=== PATIENT | female | born 1995 | race Caucasian/White ===

== ENCOUNTER 2023-09-25 07:25 | Inpatient (IN) ==
[2023-09-25] MEDS ORDERED: LACTATED RINGER'S 1,000 ML IV PRN (07:46)
[2023-09-25 08:13] LABS: Hemoglobin 13.9 g/dl (12.0-16.0); Mean Corpuscular Hemoglobin 30.6 pg (25.0-34.0); Mean Corpuscular Hgb Conc 33.9 g/dL (32.0-36.0); Mean Corpuscular Volume 90.3 fL (80.0-100.0); Mean Platelet Volume 9.6 fL (9.4-12.4); Platelet Count 230 K/uL (130-400); RDW Coefficient of Variation 14.6 % (11.5-14.5); RDW Standard Deviation 48.1 fL (36.4-46.3); Red Blood Count 4.54 M/uL (4.20-5.40); White Blood Count 13.47 K/ul (4.8-10.8)
[2023-09-25] MEDS: OXYTOCIN 30 UNITS/NSS 30 UNITS/500 ML BAG IV PRN (13:16)
[2023-09-25] MEDS: LIDOCAINE 1% LOCAL 20 ML VIAL INFIL PRN (13:29)
[2023-09-25] MEDS ORDERED: HYDROCORTISONE ACETATE 25 MG SUPP PR PRN (13:45)
[2023-09-25] MEDS ORDERED: ACETAMINOPHEN 325 MG TAB PO PRN (13:45)
[2023-09-25] MEDS ORDERED: OXYTOCIN 30 UNITS/NSS 30 UNITS/500 ML BAG IV PRN (13:45)
[2023-09-25] MEDS ORDERED: bisacodyL 10 MG SUPP PR PRN (13:45)
--- NOTE | 2023-09-25 16:05 | Delivery Summary ---
Vaginal Delivery Summary Date of Service September 25, 2023 Vaginal Delivery Summary and 1st Degree LAC Progressed to 10 cm dilated, 100% effaced +2 station pushed over intact perineum without anesthesia and delivered a viable with weight and Apgars pending. Head of the delivered without difficulty and no nuchal cord noted. Body and shoulders quickly followed. was noted to be vigorous soon after delivery and 1 minute delayed cord clamping was initiated. Cord was then double clamped and cut and remained in maternal abdomen. Cord blood obtained. Attention is turned delivery the placenta was delivered intact three-vessel cord gentle cord traction. There is noted to be a first-degree perineal laceration and a right labial laceration both repaired with 3-0 Vicryl continuous running stitch. Needle sponge and instrument counts were correct at the completion of the case. Both mother and stable in the immediate post delivery period. No complications noted and estimated blood loss of 200 mL. [facility] Vaginal Delivery Charge Delivery Type Details: and 1st Degree LAC
[2023-09-25] MEDS: BENZOCAINE 20% SPRY 85 APPLN/85 GM CAN EXT PRN (18:32)
[2023-09-25] MEDS: DIPHTHER/TETAN/PERTUS Vaccine (Tdap, Adol/Adult) 0.5mL IM ONE (18:34)
[2023-09-25] MEDS: CETIRIZINE HCL 10 MG TABLET PO SCH (20:51)
[2023-09-25] MEDS: DOCUSATE SODIUM 100 MG CAP PO SCH (20:51)
[2023-09-25] MEDS: IBUPROFEN 600 MG TAB PO PRN (20:58)
--- NOTE | 2023-09-26 06:05 | Obstetrical Progress Note ---
Date of Service September 26, 2023 Assessment & Plan (1) Encounter for care after hospital delivery: Plan: 28 y/o post day 1 s/p Continue post care Feels well today. Encourage ambulation and Hgb stable, rubella immune Pain well controlled with ibuprofen Admission and Anticipated Discharge Date Admission Date: September 25, 2023 Supervising Physician Co-Signing Physician Notes Patient seen with resident and agree with the above findings and plan. Routine care Subjective 28 y/o post- day 1 s/p Ambulation: ambulating normally Voiding: no voiding problems Passing Gas:: Yes Diet Tolerance:: regular diet Lochia:: Small Feeding Type:: Current Pain Level: controlled Resting comfortably this AM in NAD. Denies SELLERS, CP, SOB, N/V/D, LE pain/swelling. Review of Systems Review of Systems: as per hpi Physical Exam Physical Exam: General: patient resting comfortably, NAD, non-toxic in appearance, AA&O x 4, answers questions appropriately. Skin: warm, dry, intact HEENT: NC/AT, anicteric sclera, conjunctiva without injection, moist mucus membranes. Heart: +S1/S2, regular, no m/r/g Lungs: equal air entry bilaterally, no rales/rhonchi/wheezes Abd: +BS, soft, NT/ND, uterine fundus firm at umbilicus Ext: warm, no clubbing/cyanosis or edema, Ian's neg. Neuro: nonfocal, patient AA&O x 4, speech intact, no facial droop, moving all e xtremities on command. Results & Data Vital Signs (Past 12 Hours) Vital Signs Temp Pulse Resp BP Pulse Ox O2 Del Method 09/26/23 04:15 36.6 C 94 H 18 105/70 98 Room Air 09/26/23 00:10 36.8 C 103 H 18 116/67 98 Room Air 09/25/23 20:00 37.1 C 140 H 22 126/80 96 Room Air Resident Activity Tracking Resident Involvement: Resident Care Provided Care Provided: OB Delivery
[2023-09-26 07:31] LABS: Hematocrit (blood only) 34.7 % (37.0-47.0); Hemoglobin 11.4 g/dl (12.0-16.0); Mean Corpuscular Hemoglobin 30.2 pg (25.0-34.0); Mean Corpuscular Hgb Conc 32.9 g/dL (32.0-36.0); Mean Corpuscular Volume 91.8 fL (80.0-100.0); Mean Platelet Volume 9.7 fL (9.4-12.4); Platelet Count 209 K/uL (130-400); RDW Coefficient of Variation 14.9 % (11.5-14.5); RDW Standard Deviation 50.4 fL (36.4-46.3); Red Blood Count 3.78 M/uL (4.20-5.40); White Blood Count 18.41 K/ul (4.8-10.8)
[2023-09-26] MEDS: PRENATAL VITAMIN 1 TAB PO SCH (08:10)
[2023-09-26] MEDS: bisacodyL 5 MG TABEC PO SCH (20:08)
--- NOTE | 2023-09-27 03:54 | Obstetrical Progress Note ---
Date of Service September 27, 2023 Assessment & Plan (1) Encounter for care after hospital delivery: Plan stable, ready for dc. instructions reviewed, f/u 6wk pp. rh neg, baby rh neg, ri, . Day #:: 2 Subjective Ambulation: ambulating normally Voiding: no voiding problems Diet Tolerance:: regular diet Lochia:: Small Feeding Type:: breast feeding no concerns Constitutional: + as per Subjective / HPI Physical Exam Constitutional WD/WN, vitals as above Respiratory normal respiratory effort, lungs clear to auscultation Cardiovascular Rate/Rhythm: regular rate and regular rhythm Gastrointestinal (Abdomen) Inspection/Auscultation: abdomen normal to inspection Percussion/Palpation: abdomen soft Fundus firm 2cm down Musculoskeletal nt calves no edema Neurologic grossly normal Psychiatric A+Ox3, euthymic affect Results & Data Vital Signs (Past 12 Hours) Vital Signs Temp Pulse Resp BP Pulse Ox O2 Del Method 09/26/23 20:00 98.1 F 114 H 18 113/75 97 Room Air
[2023-09-27 06:33] LABS: Hematocrit (blood only) 36.3 % (37.0-47.0); Hemoglobin 11.6 g/dl (12.0-16.0)
== END 2023-09-27 12:10 | disposition home or self-care (01) | DRG 807 ==
LOC: OPB 07:25 → 4S1 07:27 → 4E2 16:07